=== PATIENT | female | born 1960 | race African-American/Black ===

== ENCOUNTER 2016-06-09 07:56 | Emergency (ER) | payer OTHER ==
[~2016-06-09] VITALS: Ht 180.3 cm; Wt 62.6 kg
[~2016-06-09 07:56] MED LIST: ACETAMINOPHEN-1 EAC2 ORAL; AMLODIPINE BESY10 MG ORAL; BENAZEPRIL HCL10 MG ORAL; CIPROFLOXACIN500 M2 ORAL; FAMOTIDINE10 MG ORAL; FERROUS SULFAT325 MG ORAL; HYDROCODON-ACE1 EA15 ORAL; NKM; NORCO 5-325 TA1 EACH ORAL; NOVOLIN R100 UNIT/1 SUBQ; PREDNISONE50 MG ORAL; ROBAXIN-750750 MG PO; VALIUM5 MG ORAL; ZOFRAN4 MG ORAL
[2016-06-09] MEDS ORDERED: LOPERAMIDE2 MG PO (08:14)
[2016-06-09] MEDS ORDERED: PREDNISONE10 MG ORAL (08:14)
[2016-06-09] MEDS ORDERED: TEMAZEPAM15 MG ORAL (08:14)
[2016-06-09] MEDS ORDERED: PLAQUENIL200 MG ORAL (08:14)
[2016-06-09] MEDS ORDERED: TREXALL5 MG PO (08:14)
[2016-06-09] MEDS ORDERED: OMEPRAZOLE40 M1 ORAL (08:14)
[2016-06-09 08:41] VITALS: BP 135/92
[2016-06-09] MEDS ORDERED: SUMAtriptan 50mg tab ORAL ONE (09:00)
[2016-06-09] MEDS ORDERED: IMITREX50 MG ORAL (09:19)
--- NOTE | 2016-06-09 09:42 | Emergency Room Report ---
History of Present Illness General Chief Complaint: General Complaint Source: Patient Present Illness HPI 56 YOF c/o 2 days throbbing frontal bilateral headache associated with nausea and aura. Denies neck pain/stiffness, fever/chills, chest pain, SOB, abd pain, urinary complaints, sick contacts. States feels like usual migraine, last time was months ago. Ran out of Neurologist prescribed Imitrex. Didnt take any meds at home for headache. Allergies: Coded Allergies: No Known Allergies (Unverified , 02/22/14) Patient History Past Medical History: migraines, other - Rehumatism? Past Surgical History: none Pertinent Family History: none Social History: Denies: alcohol use, drug use, smoking Now: No : 2 Para: 2 Immunizations: UTD Reviewed Nursing Documentation: PMH: Agreed, PSxH: Agreed Nursing Documentation-PMH Hx Cardiac Problems: No - SCIATICA, ARTHRITIS, Rheumatoid arthritis Hx Hypertension: Yes Hx Diabetes: Yes Hx Gastrointestinal Problems: Yes - ULCERS Hx Cerebrovascular Accident: No - A Review of Systems All Other Systems: negative except mentioned in HPI Physical Exam Vital Signs Date Time Temp Pulse Resp B/P Pulse Ox O2 Delivery O2 Flow Rate FiO2 06/09/16 08:04 98.1 96 16 135/92 100 Room Air Sp02 EP Interpretation: reviewed, normal General Appearance: normal inspection, well appearing, no apparent distress, alert, GCS 15, non-toxic Head: normocephalic, atraumatic Eyes: bilateral eye EOMI, bilateral eye PERRL ENT: normal ENT inspection, hearing grossly normal, normal voice Neck: normal inspection, full range of motion, supple, no bony tend Respiratory: normal inspection, lungs clear, normal breath sounds, no respiratory distress, no retraction, no accessory muscle use, no wheezing Cardiovascular #1: regular rate, rhythm, no edema Gastrointestinal: normal inspection, normal bowel sounds, non tender, soft, no guarding, no hernia Genitourinary: no CVA tenderness Musculoskeletal: normal inspection, back normal, normal range of motion, Susan' s Sign negative Neurologic: normal inspection, alert, oriented x3, responsive, airways operations specialist III-XII nml as tested, motor strength/tone normal, DTRs symmetric, speech normal Psychiatric: normal inspection, judgement/insight normal, mood/affect normal Skin: normal inspection, normal color, no rash Lymphatic: normal inspection Medical Decision Making Diagnostic Impression: Primary Impression: Headache Qualified Codes: R51 - Headache ER Course 56 yo f with headache. VSS. Afebrile. Low suspicion for SAH or meningitis given well appearance, absence of focal neuro deficits, absence of meningismus, normal vital signs, and duration and intensity of headache. History of migraines, feels similar PO Meds given with improvement Headache resolved Neuro exam serially negative for focal deficits Vitals stable on discharge F/up with PMD with referral for Neurologist Rx Imitrex given for 7 days DC home Last Vital Signs Date Time Temp Pulse Resp B/P Pulse Ox O2 Delivery O2 Flow Rate FiO2 06/09/16 08:41 98.1 73 16 135/92 100 Room Air Status: improved Disposition: HOME, SELF-CARE Condition: Improved Scripts Sumatriptan Succinate* (IMITREX*) 50 Mg Tablet 50 MG ORAL DAILY PRN MIGRAINE for 7 Days, #14 TAB Prov: KATE RIVERS M.D. 06/09/16 Referrals: [employer] [facility]ERR[facility] (PCP) Patient Instructions: Migraine Headache, [id number] Additional Instructions: - Follow up with your neurologist regarding your migraine and need for refill of Imitrex KATE RIVERS M.D. Jun 09, 2016 09:42
[2016-06-09 09:51] VITALS: BP 133/89
[2016-06-09 09:57] VITALS: BP 133/89
== END 2016-06-09 09:58 | disposition home or self-care (01) ==
LOC: EMR 08:20
DX: R51 Headache (principal); M06.9 Rheumatoid arthritis, unspecified; I10 Essential (primary) hypertension; E11.9 Type 2 diabetes mellitus without complications
CPT/HCPCS: 99283

== ENCOUNTER 2019-10-03 22:11 | Emergency (ER) | payer MEDICARE, OTHER ==
[~2019-10-03] VITALS: Ht 172.7 cm; Wt 63.5 kg
[~2019-10-03 22:11] MED LIST changes: +IMITREX50 MG ORAL; +LOPERAMIDE2 MG PO; +OMEPRAZOLE40 M1 ORAL; +PLAQUENIL200 MG ORAL; +PREDNISONE10 MG ORAL; +TEMAZEPAM15 MG ORAL; +TREXALL5 MG PO
--- NOTE | 2019-10-03 22:24 | Emergency Room Report ---
History of Present Illness General Chief Complaint: Substance Abuse Source: Medical Record, EMS Present Illness HPI This is a 59-year-old female with history of headache and chronic pain. She presents with chief complaint of altered mental status. Family called 911 because she was very lethargic and not with it. She is currently taking Fioricet for headache and also Duragesic patch. Unable to get any history from patient. There is no focal deficit on patient. No fever chills but no nausea no vomiting. Supposedly she was fine today before going to bed. Allergies: Coded Allergies: No Known Allergies (Unverified , 02/22/14) COVID-19 Screening Contact w/high risk pt: No Recent Travel to affected area: No Experienced COVID-19 symptoms?: No COVID-19 Testing performed PEDIATRIC DENTAL HYGIENIST: No Patient History Past Medical History: see triage record, old chart reviewed Past Surgical History: other Pertinent Family History: none Social History: Denies: smoking Now: No Immunizations: other Reviewed Nursing Documentation: PMH: Agreed; PSxH: Agreed Nursing Documentation-PMH Hx Cardiac Problems: No - SCIATICA, ARTHRITIS, Rheumatoid arthritis Hx Hypertension: Yes Hx Diabetes: Yes Hx Gastrointestinal Problems: Yes - ULCERS Hx Cerebrovascular Accident: No - A Review of Systems All Other Systems: limited - Secondary to patient's condition Physical Exam Vital Signs Date Time Temp Pulse Resp B/P (MAP) Pulse Ox O2 Delivery O2 Flow Rate FiO2 10/03/19 22:13 98.4 102 14 151/100 (117) 99 Room Air Vitals with high blood pressure Sp02 EP Interpretation: reviewed, normal General Appearance: no apparent distress, lethargic, thin Head: normocephalic, atraumatic Eyes: bilateral eye PERRL, bilateral eye EOMI ENT: hearing grossly normal, normal pharynx Neck: full range of motion, supple, no meningismus Respiratory: chest non-tender, lungs clear, normal breath sounds Cardiovascular #1: regular rate, rhythm, no murmur Gastrointestinal: normal bowel sounds, non tender, no mass, no organomegaly, no bruit, non-distended Musculoskeletal: back normal, normal range of motion Psychiatric: depressed affect Medical Decision Making Diagnostic Impression: Primary Impression: Benzodiazepine (tranquilizer) overdose Qualified Codes: T42.4X1A - Poisoning by benzodiazepines, accidental ( unintentional), initial encounter ER Course This patient presents with altered mental status and questionable overdose. Labs unremarkable. CT scan is negative. She slept for several hours and now awake. She walked to the bathroom without any problem. Initially, no response to Narcan. She states she took Ambien to go to sleep. CT/MRI/US Diagnostic Results CT/MRI/US Diagnostic Results : Imaging Test Ordered: CT head Impression Per radiologist neg Last Vital Signs Date Time Temp Pulse Resp B/P (MAP) Pulse Ox O2 Delivery O2 Flow Rate FiO2 10/03/19 22:13 98.4 102 14 151/100 (117) 99 Room Air Status: improved Disposition: HOME, SELF-CARE Condition: Stable Additional Instructions: Take your medication as prescribed. Follow-up with your doctor in 7 days. Return if worse. Otoniel Matos MD Oct 03, 2019 22:24
[2019-10-03 22:25] VITALS: BP 159/90
--- NOTE | 2019-10-03 22:25 | NUR ---
ED Nurse Note: Patient brought in by ambulance RA68 from home d/t possible overdose, per EMS she had 15mcg morphine patch and barbiturate pill bottles near bedside. Patient aao x 1 and unable to follow commands. Patient changed into gown and placed on quality assurance monitor body. No acute distress noted.
--- NOTE | 2019-10-03 22:28 | NUR ---
ED Nurse Note: Patient taken to CT
[2019-10-03 22:43] LABS: BASOPHILS % (AUTO) 1.2 % (0.0-2.0); EOSINOPHILS % (AUTO) 3.4 % (0.0-3.0); HEMATOCRIT 37.8 % (37.0-47.0); HEMOGLOBIN 11.9 G/DL (12.0-16.0); LYMPHOCYTES % (AUTO) 36.9 % (20.0-45.0); MEAN CORPUSCULAR VOLUME 99 FL (80-99); MONOCYTES % (AUTO) 9.6 % (1.0-10.0); NEUTROPHILS % (AUTO) 48.9 % (45.0-75.0); PLATELET COUNT 175 K/UL (150-450); RED BLOOD COUNT 3.81 M/UL (4.20-5.40); RED CELL DISTRIBUTION WIDTH 13.6 % (11.6-14.8); WHITE BLOOD COUNT 3.6 K/UL (4.8-10.8)
[2019-10-03 22:49] LABS: ANION GAP 8 mmol/L (5-15); BLOOD UREA NITROGEN 11 mg/dL (7-18); CALCIUM 8.6 MG/DL (8.5-10.1); CARBON DIOXIDE 28 MMOL/L (21-32); CHLORIDE 109 MMOL/L (98-107); CREATININE 1.1 MG/DL (0.55-1.30); POTASSIUM 3.1 MMOL/L (3.5-5.1); SODIUM 145 MMOL/L (136-145)
[2019-10-03 22:53] LABS: ALANINE AMINOTRANSFERASE 40 U/L (12-78); ALBUMIN 3.8 G/DL (3.4-5.0); ALBUMIN/GLOBULIN RATIO 1.2 (1.0-2.7); ALKALINE PHOSPHATASE 129 U/L (46-116); ASPARTATE AMINO TRANSFERASE 19 U/L (15-37); BILIRUBIN,TOTAL 0.2 MG/DL (0.2-1.0)
--- NOTE | 2019-10-03 22:58 | Diagnostic Imaging Report ---
EXAM: CT Head Without Intravenous Contrast CLINICAL HISTORY: AMS TECHNIQUE: Axial computed tomography images of the head/brain without intravenous contrast. CTDI is 107 mGy and DLP is 1357 mGy-cm. One or more of the following dose reduction techniques were used: automated exposure control, adjustment of the mA and/or kV according to patient size, use of iterative reconstruction technique. COMPARISON: No relevant prior studies available. FINDINGS: Brain: No hemorrhage, extra-axial fluid collection, mass effect, or edema. Ventricles: Unremarkable. Bones/joints: Unremarkable. Soft tissues: Unremarkable. Sinuses: Unremarkable as visualized. Mastoid air cells: Unremarkable as visualized. IMPRESSION: 1. No acute intracranial abnormality.
[2019-10-03 23:00] LABS: APPEARANCE,URINE CLEAR; BILIRUBIN, URINE NEGATIVE (NEGATIVE); COLOR,URINE PALE YELLOW; GLUCOSE, URINE (UA) NEGATIVE (NEGATIVE); KETONES,URINE NEGATIVE (NEGATIVE); LEUKOCYTE ESTERASE ,URINE NEGATIVE (NEGATIVE); NITRITE,URINE NEGATIVE (NEGATIVE); PH,URINE 6 (4.5-8.0); PROTEIN,URINE 1+ (NEGATIVE); UROBILINOGEN,URINE NORMAL MG/DL (0.0-1.0)
[2019-10-03] MEDS ORDERED: Naloxone 1mg/ml 2ml IVP ONE (23:45)
--- NOTE | 2019-10-04 01:45 | NUR ---
ED Nurse Note: alcohol blood serum collected and sent to lab.
[2019-10-04 01:48] VITALS: BP 138/67
--- NOTE | 2019-10-04 04:06 | NUR ---
ED Nurse Note: Patient awake and able to respond to verbal cues, patient aao x 4 and ambulatory with steady gait. Patient stated she took ambien for sleep, ERMD aware. Patient ambulated to restroom in stable condition.
--- NOTE | 2019-10-04 04:10 | NUR ---
ED Nurse Note: Daughter Tracy contacted to picker and sorter load and unload patient and stated she is on her way.
[2019-10-04 04:35] VITALS: BP 145/78
--- NOTE | 2019-10-04 04:35 | NUR ---
ER DISCHARGE NOTE: Patient is cleared to be discharged per ERMD, pt is aox4, on room air, with stable vital signs. pt was given dc instructions, pt was able to verbalize understanding, pt id band and iv site removed intact without complications. pt is able to ambulate with steady gait. pt took all belongings. pt was picked up by daughter. pt stable upon discharge.
== END 2019-10-04 04:35 | disposition home or self-care (01) ==
LOC: EDBD 22:11 → EMR 22:20
DX: T42.4X1A Poisoning by benzodiazepines, accidental (unintentional), initial encounter (principal); X58.XXXA Exposure to other specified factors, initial encounter; Y92.9 Unspecified place or not applicable; M06.9 Rheumatoid arthritis, unspecified; E11.9 Type 2 diabetes mellitus without complications; I10 Essential (primary) hypertension
CPT/HCPCS: 36415; 70450; 80053; 80307; 81001; 85025; 96361; 96374; 99284; G0480; J2310; J7030